=== PATIENT | female | born 1965 | race Caucasian/White ===

== ENCOUNTER 2016-07-13 16:27 | Emergency (ER) | payer MEDICAID ==
[2016-07-13 16:50] VITALS: BP 134/61
[2016-07-13] MEDS ORDERED: Sodium Chloride 0.9% 1,000 ML IV ONE ×2 (17:08→18:18)
[2016-07-13] MEDS ORDERED: Sodium Chloride 0.9% 10 ML Syringe FLUSH PRN (17:08)
[2016-07-13] MEDS ORDERED: Ondansetron 4 MG/2 ML SDV IVPUSH ONE (17:08)
--- NOTE | 2016-07-13 17:09 | EDM.PDOC ---
ED HPI GENERAL MEDICAL PROBLEM - General Chief Complaint: General Stated Complaint: LETHARGIC, SHAKEY, HEADACHE Time Seen by Provider: 07/13/16 17:00 Source of Information: Reports: Patient History Limitations: Reports: No Limitations - History of Present Illness INITIAL COMMENTS - FREE TEXT/NARRATIVE: 51-year-old female is brought over from the clinic for evaluation and treatment of a headache and lethargy. Patient has slurred speech and is very lethargic. She is a poor historian at this time. Apparently she has slept approximately 18- 20 hours last night. She contacted her primary care provider around noon today. She made an appointment with him but misunderstood and did not show up until about 4:30. It was then determined at the clinic that she should be brought over to the ER for higher level of care. Current symptoms included headache, lethargy, weakness, neck pain, slurred speech, blurry vision and difficulty remembering things. She denies any double vision, vomiting, chest pain, shortness of breath or abdominal pain. She does not remember her medications. We had to contact pharmacy for a list of these. has presented to the ER. States She went to bed as normal on Monday. states that she woke Mondayand helped him get their daughter ready for school. No concerns at that time. He states that he ran some errands and around noon on Monday he returned home; she was laying in bed. He felt this was odd but allowed her to sleep. He felt that she was diaphoretic, pale, cold and clammy at that time. He took her temp and it was 98.5 and her blood pressure was in the 100s/60s. He states that he allowed her to sleep and checked on her again around 4 or 5pm. She was still in bed. He states that she slept through Monday. He checked on her every hour. States she skipped her meds on Monday a.m. and p.m. He states that over Monday night he notes periods of apnea. He states on Monday he felt her pupils are fixed and dilated. They said they did not react to light. Patient last remembers her waking her up shouting at her. Patient reports she has had several falls over the last few days. Reports striking her neck and occipital region at least once. joints, knees Pain Score (Numeric/FACES): 5 - Related Data Allergies Allergy/AdvReac Type Severity Reaction Status Date / Time gabapentin Allergy Other Verified 07/13/16 17:21 lorazepam [From Ativan] Allergy Hallucinati Verified 07/13/16 17:21 ons Penicillins Allergy Other Verified 07/13/16 17:21 pregabalin [From Lyrica] Allergy Other Verified 07/13/16 17:21 Home Meds: Home Meds ALPRAZolam [Xanax] 0.5 mg PO TID PRN 07/13/16 [History] Amitriptyline [Elavil] 200 mg PO BEDTIME 07/13/16 [History] Baclofen [Lioresal] 1 tab PO TID PRN 07/13/16 [History] ClonazePAM [KlonoPIN] 1 mg PO TID PRN 07/13/16 [History] Codeine/Promethazine HCl [Promethazine-Codeine Syrup] 1 dose PO QID PRN [History] Cyanocobalamin (Vitamin B-12) [Cyanocobalamin Injection] 1,000 mcg IJ ASDIRECTED 07/13/16 [History] DULoxetine [Cymbalta] 60 mg PO DAILY 07/13/16 [History] Lisinopril/Hydrochlorothiazide [Lisinopril-Hctz 20-25 mg Tab] 1 each PO DAILY [History] Nitrofurantoin Monohyd/M-Cryst [Macrobid 100 mg Capsule] 100 mg PO BID #10 capsule 07/13/16 [Rx] Zolpidem Tartrate [Ambien] 5 mg PO BEDTIME PRN 07/13/16 [History] cloNIDine [Catapres] 0.1 mg PO DAILY 07/13/16 [History] fentaNYL [Fentanyl] 25 mcg TD Q72H 07/13/16 [History] metFORMIN HCl [Metformin HCl] 650 mg PO BID 07/13/16 [History] oxyCODONE 1 tab PO Q6H PRN 07/13/16 [History] Past Medical History HEENT History: Reports: Impaired Vision Cardiovascular History: Reports: Hypertension Respiratory History: Reports: Other (See Below) Other Respiratory History: recently treated for pneumonia, RAD Gastrointestinal History: Reports: Other (See Below) Other Gastrointestinal History: hx nausea, takes meclizine at home Genitourinary History: Reports: Other (See Below) Other Genitourinary History: uranry retention 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 (See Below) Other OB/BYN History: right ovary removed Musculoskeletal History: Reports: Arthritis, Fibromyalgia, Other (See Below) Other Musculoskeletal History: chronic knee pain Neurological History: Reports: Headaches, Chronic Psychiatric History: Reports: Anxiety, Depression, Mood Swings, Panic Attack, PTSD Other Psychiatric History: patient states "odd behaviors" before travelling and "big events" Endocrine/Metabolic History: Reports: Hypothyroidism, Obesity/BMI 30+ - Past Surgical History GI Surgical History: Reports: Bariatric Procedure Other GI Surgeries/Procedures: gastric bypass 7 years ago Other Musculoskeletal Surgeries/Procedures:: patient currently a patient at the pain clinic for chronic pain Social & Family History - Family History Family Medical History: Noncontributory - Tobacco Use Smoking Status *Q: Never Smoker - Caffeine Use Caffeine Use: Reports: None - Recreational Drug Use Recreational Drug Use: No Other Recreational Drug Type: patient has multiple prescription anxiety and narcotic pain medication ED ROS GENERAL - Review of Systems Review Of Systems: See Below Constitutional: Reports: Weakness, Fatigue. Denies: Fever, Chills HEENT: Reports: Vision Change (blurry vision; no double vision), Other (dry mouth) Respiratory: Denies: Shortness of Breath Cardiovascular: Denies: Chest Pain GI/Abdominal: Reports: Nausea. Denies: Abdominal Pain, Diarrhea, Vomiting Musculoskeletal: Reports: Neck Pain Neurological: Reports: Headache, Numbness, Tingling, Difficulty Walking, Change in Speech Psychiatric: Reports: Confusion ED EXAM, GENERAL - Physical Exam Exam: See Below Exam Limited By: No Limitations General Appearance: Lethargic, Obese Eye Exam: Bilateral Eye: EOMI, PERRL Ears: Normal External Exam, Normal Canal, Hearing Grossly Normal, Normal TMs Nose: Normal Inspection Throat/Mouth: Normal Inspection, Normal Lips, Normal Voice, No Airway Compromise Head: Atraumatic, Normocephalic Neck: Normal Inspection, Supple, Non-Tender Respiratory/Chest: No Respiratory Distress, Lungs Clear, Normal Breath Sounds Cardiovascular: Normal Peripheral Pulses, Regular Rate, Rhythm, No Murmur GI/Abdominal: Soft, Non-Tender Neurological: CN II-XII Intact, Confused, Slow to Respond, Other (normal finger to nose testing, no pronator drift, heel to rowland normal right, deviation on the left; belting cutter, dorsiflexion and plantarflexion 5/5 bilaterally; slurred speech; symmetrical smile; able to raise eyebrows) Psychiatric: Flat Affect Skin Exam: Warm, Dry, Normal Color EKG INTERPRETATION EKG Date: 07/13/16 Time: 17:10 Rhythm: NSR Rate (beats/min): 91 Reubens: normal P-wave: present QRS: normal ST-T: normal QT: normal Comparison: NA - no prior EKG EKG Interpretation Comments: NSR at 91 bpm. Q waves in V2 and V3. Mild St elevation in V2. Reviewed by myself and Dr. Lewis. Course - Vital Signs Last Recorded V/S: Last Vital Signs Temp 36.7 C 07/13/16 16:30 Pulse 96 07/13/16 16:30 Resp 18 07/13/16 16:30 BP 134/61 07/13/16 16:30 Pulse Ox 99 07/13/16 16:30 - Orders/Labs/Meds Orders: Active Orders 24 hr Category Date Time Status Cardiac Monitoring [RC] . DIRECTED Care 07/13/16 17:06 Active EKG Documentation Completion [RC] STAT Care 07/13/16 17:02 Active Peripheral IV Care [RC] . DIRECTED Care 07/13/16 17:08 Active Chest 1V Frontal [CR] Stat Exams 07/13/16 17:02 Taken CULTURE URINE [RM] Stat Lab 07/13/16 19:20 Received Peripheral IV Insertion Adult [OM.PC] Routine Oth 07/13/16 17:08 Ordered Labs: Laboratory Tests 07/13/16 07/13/16 07/13/16 Range/Units 16:44 17:02 17:15 WBC 10.00 (3.98-10.04) K/mm3 RBC 4.35 (3.98-5.22) M/mm3 Hgb 11.9 (11.2-15.7) gm/L Hct 36.8 (34.1-44.9) % MCV 84.6 (79.4-94.8) fl MCH 27.4 (25.6-32.2) pg MCHC 32.3 (32.2-35.5) g/dl RDW Std Deviation 45.3 (36.4-46.3) fL Plt Count 335 (182-369) K/mm3 MPV 10.1 (9.4-12.3) fl Neutrophils % (Manual) 77 H (40-60) % Band Neutrophils % 0 (0-10) % Lymphocytes % (Manual) 18 L (20-40) % Atypical Lymphs % 0 % Monocytes % (Manual) 4 (2-10) % Eosinophils % (Manual) 1 (0.7-5.8) % Basophils % (Manual) 0 L (0.1-1.2) Platelet Estimate Adequate RBC Morph Comment Normal Sodium 128 L (136-145) mEq/L Potassium 3.7 (3.5-5.1) mEq/L Chloride 91 L (98-107) mEq/L Carbon Dioxide 30 (21-32) mEq/L Anion Gap 10.7 (5-15) BUN 10 (7-18) mg/dL Creatinine 1.2 H (0.55-1.02) mg/dL Est Cr Clr Drug Dosing 51.03 mL/min Estimated GFR (MDRD) 48 (>60) mL/min BUN/Creatinine Ratio 8.3 L (14-18) Glucose 98 (74-106) mg/dL POC Glucose 110 H (70-105) mg/dL Calcium 8.8 (8.5-10.1) mg/dL Magnesium 1.8 (1.8-2.4) mg/dl Total Bilirubin 0.5 (0.2-1.0) mg/dL AST 20 (15-37) U/L ALT 17 (14-59) U/L Alkaline Phosphatase 95 (46-116) U/L C-Reactive Protein 1.5 H* (<1.0) mg/dL Total Protein 6.6 (6.4-8.2) g/dl Albumin 3.2 L (3.4-5.0) g/dl Globulin 3.4 gm/dL Albumin/Globulin Ratio 0.9 L (1-2) TSH 3rd Generation 1.026 (0.358-3.74) uIU/mL Urine Color (Yellow) Urine Appearance (Clear) Urine pH (5.0-8.0) Ur Specific Raysal (1.005-1.030) Urine Protein (Negative) Urine Glucose (UA) (Negative) Urine Ketones (Negative) Urine Occult Blood (Negative) Urine Nitrite (Negative) Urine Bilirubin (Negative) Urine Urobilinogen (0.2-1.0) Ur Leukocyte Esterase (Negative) Urine RBC (0-5) /hpf Urine WBC (0-5) /hpf Ur Epithelial Cells (0-5) /hpf Urine Bacteria (FEW) /hpf Urine Mucus (FEW) /hpf Urine Opiates Screen (NEGATIVE) Ur Buprenorphine Scrn (NEGATIVE) Ur Oxycodone Screen (NEGATIVE) Urine Methadone Screen (NEGATIVE) Ur Propoxyphene Screen (NEGATIVE) Ur Barbiturates Screen (NEGATIVE) Ur Tricyclics Screen (NEGATIVE) Ur Phencyclidine Scrn (NEGATIVE) Ur Amphetamine Screen (NEGATIVE) U Methamphetamines Scrn (NEGATIVE) U Benzodiazepines Scrn (NEGATIVE) U Cocaine Metab Screen (NEGATIVE) U Marijuana (THC) Screen (NEGATIVE) Ethyl Alcohol 0.00 (0.00) gm% 07/13/16 07/13/16 Range/Units 19:20 19:20 WBC (3.98-10.04) K/mm3 RBC (3.98-5.22) M/mm3 Hgb (11.2-15.7) gm/L Hct (34.1-44.9) % MCV (79.4-94.8) fl MCH (25.6-32.2) pg MCHC (32.2-35.5) g/dl RDW Std Deviation (36.4-46.3) fL Plt Count (182-369) K/mm3 MPV (9.4-12.3) fl Neutrophils % (Manual) (40-60) % Band Neutrophils % (0-10) % Lymphocytes % (Manual) (20-40) % Atypical Lymphs % % Monocytes % (Manual) (2-10) % Eosinophils % (Manual) (0.7-5.8) % Basophils % (Manual) (0.1-1.2) Platelet Estimate RBC Morph Comment Sodium (136-145) mEq/L Potassium (3.5-5.1) mEq/L Chloride (98-107) mEq/L Carbon Dioxide (21-32) mEq/L Anion Gap (5-15) BUN (7-18) mg/dL Creatinine (0.55-1.02) mg/dL Est Cr Clr Drug Dosing mL/min Estimated GFR (MDRD) (>60) mL/min BUN/Creatinine Ratio (14-18) Glucose (74-106) mg/dL POC Glucose (70-105) mg/dL Calcium (8.5-10.1) mg/dL Magnesium (1.8-2.4) mg/dl Total Bilirubin (0.2-1.0) mg/dL AST (15-37) U/L ALT (14-59) U/L Alkaline Phosphatase (46-116) U/L C-Reactive Protein (<1.0) mg/dL Total Protein (6.4-8.2) g/dl Albumin (3.4-5.0) g/dl Globulin gm/dL Albumin/Globulin Ratio (1-2) TSH 3rd Generation (0.358-3.74) uIU/mL Urine Color Yellow (Yellow) Urine Appearance Clear (Clear) Urine pH 6.5 (5.0-8.0) Ur Specific Raysal 1.015 (1.005-1.030) Urine Protein Negative (Negative) Urine Glucose (UA) Negative (Negative) Urine Ketones Negative (Negative) Urine Occult Blood Trace-lysed H (Negative) Urine Nitrite Negative (Negative) Urine Bilirubin Negative (Negative) Urine Urobilinogen 0.2 (0.2-1.0) Ur Leukocyte Esterase 1+ H (Negative) Urine RBC 0-5 (0-5) /hpf Urine WBC 5-10 H (0-5) /hpf Ur Epithelial Cells 40-50 H (0-5) /hpf Urine Bacteria Moderate H (FEW) /hpf Urine Mucus Not seen (FEW) /hpf Urine Opiates Screen Presumptive positive H (NEGATIVE) Ur Buprenorphine Scrn Negative (NEGATIVE) Ur Oxycodone Screen Presumptive positive H (NEGATIVE) Urine Methadone Screen Negative (NEGATIVE) Ur Propoxyphene Screen Negative (NEGATIVE) Ur Barbiturates Screen Negative (NEGATIVE) Ur Tricyclics Screen Presumptive positive H (NEGATIVE) Ur Phencyclidine Scrn Negative (NEGATIVE) Ur Amphetamine Screen Negative (NEGATIVE) U Methamphetamines Scrn Negative (NEGATIVE) U Benzodiazepines Scrn Presumptive positive H (NEGATIVE) U Cocaine Metab Screen Negative (NEGATIVE) U Marijuana (THC) Screen Negative (NEGATIVE) Ethyl Alcohol (0.00) gm% Meds: Medications Discontinued Medications Generic Name Dose Route Start Last Admin Trade Name Freq PRN Reason Stop Dose Admin Sodium Chloride 1,000 mls @ 999 mls/hr 07/13/16 17:08 07/13/16 17:15 Normal Saline IV 07/13/16 18:08 999 mls/hr ONETIME ONE Administration Sodium Chloride 1,000 mls @ 999 mls/hr 07/13/16 18:18 07/13/16 18:42 Normal Saline IV 07/13/16 19:18 999 mls/hr ONETIME ONE Administration Ondansetron HCl 4 mg 07/13/16 17:08 07/13/16 17:15 Zofran IVPUSH 07/13/16 17:09 4 mg ONETIME ONE Administration Sodium Chloride 10 ml 07/13/16 17:08 07/13/16 17:15 Saline Flush FLUSH 10 ml ASDIRECTED PRN Administration Keep Vein Open - Radiology Interpretation Free Text/Narrative:: chest xray shows no acute intrathroacic process. CT of the head without contrast impression per Dr. Diaz: 1. Findings felt to be incidental as noted above. 2. No acute intracranial abnormality is appreciated. CT of the cervical spine without contrast impression per Dr. Diaz: 1. Mild degenerative change as noted above. 2. kyphosis either due to muscle spasm or positioning. 3. No acute bony abnormality is seen. CT Results Date: 07/13/16 - Re-Assessments/Exams Free Text/Narrative Re-Assessment/Exam: 07/13/16 20:04 Labs have returned. White blood cell count of 10.0, hemoglobin of 1.9 platelets 335. Sodium is 128, potassium 3.7 chloride is 91. Creatinine is 1.2. Glucose is 90. mag is 1.8. CRP is 1.5. TSH is 1.026 alcohol is 0 UA has trace lysed RBC, 1+ leuks and bacteria - urine sent for culture. drug screen is positive for opiates, benzoa, oxycodone and tricyclics I reviewed the lab, EKG and imaging results with the patient and her . I had nursing staff BladderScan the patient. She had greater than 1 L in her bladder. She attempted to urinate and urinated only about 250 cc. At that time I had nursing staff cath the patient and they got out about 1 L of urine. At this time the patient is greatly improved. She is much more alert and is speaking normally. I believe that her symptoms are likely from her multiple medications she is on. I will have her follow up with her primary care providers for taper off some of these medications. Will treat her with for UTI with Macrobid one tablet twice a day for 5 days. Discharge instructions as documented. Departure - Departure Time of Disposition: 20:05 Disposition: Home, Self-Care 01 Condition: fair Clinical Impression: UTI, Urinary tract infectious disease, Hyponatremia, Dehydration - Discharge Information Prescriptions: Nitrofurantoin Monohyd/M-Cryst [Macrobid 100 mg Capsule] 100 mg PO BID #10 capsule Instructions: Hyponatremia, [id number], Urinary Tract Infection, Adult, Easy- to-Read, Dehydration, Adult Referrals: Fernando Gastelum PA-C [Primary Care Provider] - Forms: ED Department Discharge Additional Instructions: Limit water. Recommend gatorade, powerade, etc for fluid replacement. may increase your sodium. macrobid 1 tab PO bid x 5 days for UTI. Follow-up with PCP or Monday. Follow-up with pain clinic to discuss tapering off some of your medications. Please return to the ER should your symptoms change or worsen. - My Orders Last 24 Hours: My Active Orders 07/13/16 17:02 EKG Documentation Completion [RC] STAT Chest 1V Frontal [CR] Stat 07/13/16 17:06 Cardiac Monitoring [RC] . DIRECTED 07/13/16 17:08 Peripheral IV Care [RC] . DIRECTED Peripheral IV Insertion Adult [OM.PC] Routine 07/13/16 19:20 CULTURE URINE [RM] Stat - Assessment/Plan Last 24 Hours: My Active Orders 07/13/16 17:02 EKG Documentation Completion [RC] STAT Chest 1V Frontal [CR] Stat 07/13/16 17:06 Cardiac Monitoring [RC] . DIRECTED 07/13/16 17:08 Peripheral IV Care [RC] . DIRECTED Peripheral IV Insertion Adult [OM.PC] Routine 07/13/16 19:20 CULTURE URINE [RM] Stat
--- NOTE | 2016-07-13 18:59 | CT ---
Head CT Technique: Multiple axial sections through the brain were obtained. Intravenous contrast was not utilized. Comparison: Previous head CT study of 04/11/13. Findings: Ventricles along with basal cisterns and sulci over the convexities are within normal limits for the patient's age. No abnormal parenchymal densities are seen. No evidence of intracranial hemorrhage. No midline shift or mass effect is seen. Bone window settings were reviewed which shows no discrete calvarial abnormality. Mild mucosal thickening is noted within the left side of the sphenoid sinus. Scalp lesion noted within the upper right parietal region which is noted on prior exam. Impression: 1. Findings felt to be incidental as noted above. 2. No acute intracranial abnormality is appreciated. Diagnostic code #2
--- NOTE | 2016-07-13 18:59 | CT ---
CT cervical spine Technique: Multiple axial sections through the cervical spine were obtained. Reconstructed sagittal and coronal images were reviewed. Comparison: Previous MRI cervical spine exam of 05/04/16. Findings: Mild disc space narrowing is noted at C4-C5, C5-C6 with moderate disc space narrowing noted at C6-C7. Mild anterior osteophytes are seen at these same levels. Slight kyphosis is present. Mild scoliosis is also noted. Mild degenerative spurring is noted within the uncovertebral joints at C5-C6 and C6-C7 on the left side. Mastoid sinuses and middle ear cavities are clear. Posterior skull base is intact. Vertebral bodies and posterior arches are intact with no fracture being seen. No bony central or bony neural foraminal stenosis is seen. No abnormal subluxation is seen. Impression: 1. Mild degenerative change as noted above. 2. Kyphosis either due to muscle spasm or positioning. 3. No acute bony abnormality is seen. Diagnostic code #2
--- NOTE | 2016-07-14 08:04 | CR ---
Chest: Portable view of the chest was obtained. Comparison: Previous chest x-rays not available. Heart size and mediastinum are within normal limits for portable technique. Lungs are clear. Bony structures are grossly intact. Impression: 1. Nothing acute is identified on portable chest x-ray. Diagnostic code #1
== END 2016-07-13 20:15 | disposition home or self-care (01) ==
LOC: JD.ED 16:27
DX: E86.0 Dehydration (principal); R53.83 Other fatigue; R51 Headache; E87.1 Hypo-osmolality and hyponatremia; N39.0 Urinary tract infection, site not specified; I10 Essential (primary) hypertension; E03.9 Hypothyroidism, unspecified; Z98.84 Bariatric surgery status; Z79.899 Other long term (current) drug therapy; Z88.0 Allergy status to penicillin; Z91.81 History of falling; M40.202 Unspecified kyphosis, cervical region; M41.9 Scoliosis, unspecified; M47.9 Spondylosis, unspecified
CPT/HCPCS: 36415; 51701; 51798; 70450; 71010; 72125; 80053; 80306; 81001; 82962; 83735; 84443; 85025; 86140; 87086; 87088; 87186; 93005; 96361; 96374; 99285; G0480; J2405; J7040; J7050; 99284

== ENCOUNTER 2016-08-20 13:09 | Emergency (ER) | payer MEDICAID ==
[2016-08-20 13:38] VITALS: BP 101/62
--- NOTE | 2016-08-20 15:39 | EDM.PDOC ---
ED HPI GENERAL MEDICAL PROBLEM - General Chief Complaint: Genitourinary Problem Stated Complaint: POSS. UTI, JOINT PAIN Time Seen by Provider: 08/20/16 14:00 Source of Information: Reports: Patient History Limitations: Reports: No Limitations - History of Present Illness INITIAL COMMENTS - FREE TEXT/NARRATIVE: Patient is a 51-year-old female with a history of chronic pain syndrome who presents ED complaining of left heel pain, multiple bruises over her extremities of unknown origin, increased sleepiness, and lacking motivation. Patient states she's on the fentanyl patch 25 g every 72 hours, and also oxycodone 4 times a day. States with taking these medications she is more drowsy , lacks motivation, and sleeps a lot more. States in the past she is taking more of the medications and prescription allowed. States as a recently she has been having her medications counted out so that she doesn't take more than she can. States she has been bumping into things more than usual and has had a couple falls. Pain to the right she's been left heel has been a chronic issue with relief on known precipitating factors. She's been utilizing a walker more lately because unsteady gait. Patient does present to the ED what appears to be overly medicated with narcotics due to increased drowsiness. Of note patient does have a history of hyponatremia and was hospitalized for a period of time with this abnormality. She has been drinking Gatorade and water and alternating fashion to help control this. She's had a poor appetite and notes that she has not been eating well. Largely in part with taking the narcotics. She is hoping to decrease her narcotic use. She has been under a lot more stress recently. 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 She denies any headache, chest pain, short of breath, numbness or tingling, abdominal pain, vision loss, pain with urination, or any additional complaints. She did vomit 1 today for unknown etiology. Generalized Pain Score (Numeric/FACES): 10 - Related Data Allergies Allergy/AdvReac Type Severity Reaction Status Date / Time gabapentin Allergy Other Verified 08/20/16 13:30 lorazepam [From Ativan] Allergy Hallucinati Verified 08/20/16 13:30 ons Penicillins Allergy Other Verified 08/20/16 13:30 pregabalin [From Lyrica] Allergy Other Verified 08/20/16 13:30 Home Meds: Home Meds ALPRAZolam [Xanax] 0.5 mg PO TID PRN 07/13/16 [History] Amitriptyline [Elavil] 200 mg PO BEDTIME 07/13/16 [History] Baclofen [Lioresal] 1 tab PO TID PRN 07/13/16 [History] ClonazePAM [KlonoPIN] 1 mg PO TID PRN 07/13/16 [History] Codeine/Promethazine HCl [Promethazine-Codeine Syrup] 1 dose PO QID PRN [History] Cyanocobalamin (Vitamin B-12) [Cyanocobalamin Injection] 1,000 mcg IJ ASDIRECTED 07/13/16 [History] DULoxetine [Cymbalta] 60 mg PO DAILY 07/13/16 [History] Lisinopril/Hydrochlorothiazide [Lisinopril-Hctz 20-25 mg Tab] 1 each PO DAILY [History] Zolpidem Tartrate [Ambien] 5 mg PO BEDTIME PRN 07/13/16 [History] cloNIDine [Catapres] 0.1 mg PO DAILY 07/13/16 [History] fentaNYL [Fentanyl] 25 mcg TD Q72H 07/13/16 [History] metFORMIN HCl [Metformin HCl] 650 mg PO BID 07/13/16 [History] oxyCODONE 1 tab PO Q6H PRN 07/13/16 [History] Past Medical History HEENT History: Reports: Impaired Vision Cardiovascular History: Reports: Hypertension Respiratory History: Reports: Other (See Below) Other Respiratory History: recently treated for pneumonia, RAD Gastrointestinal History: Reports: Other (See Below) Other Gastrointestinal History: hx nausea, takes meclizine at home Genitourinary History: Reports: Other (See Below) Other Genitourinary History: uranry retention [employer] 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 History: Reports: Other (See Below) Other OB/BYN History: right ovary removed Musculoskeletal History: Reports: Arthritis, Fibromyalgia, Other (See Below) Other Musculoskeletal History: chronic knee pain Neurological History: Reports: Headaches, Chronic Psychiatric History: Reports: Anxiety, Depression, Mood Swings, Panic Attack, PTSD Other Psychiatric History: patient states "odd behaviors" before travelling and "big events" Endocrine/Metabolic History: Reports: Hypothyroidism, Obesity/BMI 30+ - Past Surgical History GI Surgical History: Reports: Bariatric Procedure Other GI Surgeries/Procedures: gastric bypass 7 years ago Other Musculoskeletal Surgeries/Procedures:: patient currently a patient at the pain clinic for chronic pain Social & Family History - Family History Family Medical History: Noncontributory - Tobacco Use Smoking Status *Q: Never Smoker Second Hand Smoke Exposure: No - Caffeine Use Caffeine Use: Reports: Coffee - Recreational Drug Use Recreational Drug Use: No Other Recreational Drug Type: patient has multiple prescription anxiety and narcotic pain medication ED ROS GENERAL - Review of Systems Review Of Systems: ROS reveals no pertinent complaints other than HPI. ED EXAM, GENERAL - Physical Exam Exam: See Below Exam Limited By: Intoxication General Appearance: Alert, No Apparent Distress, Lethargic, Obese Eye Exam: Bilateral Eye: EOMI, PERRL Ears: Hearing Grossly Normal Nose: Normal Inspection Throat/Mouth: Normal Inspection, Normal Oropharynx, Normal Voice, No Airway Compromise Head: Atraumatic, Normocephalic Neck: Normal Inspection, Supple, Non-Tender, Full Range of Motion Respiratory/Chest: No Respiratory Distress, Lungs Clear, Normal Breath Sounds, No Accessory Muscle Use, Chest Non-Tender Cardiovascular: Normal Peripheral Pulses, Regular Rate, Rhythm Peripheral Pulses: 2+: Radial (L), Radial (R) GI/Abdominal: Normal Bowel Sounds, Soft, Non-Tender, No Organomegaly, No Distention Back Exam: Normal Inspection Extremities: Normal Range of Motion, No Pedal Edema, Normal Capillary Refill, Other (Pain to the left heel with palpation. No swelling, deformity, bruising, abrasions noted.) Neurological: Alert, Oriented, CN II-XII Intact, Other (Lethargic) Psychiatric: Normal Affect, Depressed Mood Skin Exam: Warm, Dry, Intact, No Rash, Ecchymosis (Multiple small old bruises to the upper and lower extremities.) Course - Vital Signs Last Recorded V/S: Last Vital Signs Temp 96.2 F 08/20/16 13:30 Pulse 63 08/20/16 13:30 Resp 15 08/20/16 13:30 BP 101/62 08/20/16 13:30 Pulse Ox 100 08/20/16 13:30 - Orders/Labs/Meds Orders: Active Orders 24 hr Category Date Time Status Peripheral IV Care [RC] . DIRECTED Care 08/20/16 15:48 Active Calcaneous Lt [CR] Stat Exams 08/20/16 14:17 Taken CULTURE URINE [RM] Stat Lab 08/20/16 14:50 Results Peripheral IV Insertion Adult [OM.PC] Stat Oth 08/20/16 15:48 Ordered Labs: Laboratory Tests 08/20/16 08/20/16 08/20/16 Range/Units 14:34 14:34 14:34 WBC 4.08 (3.98-10.04) K/mm3 RBC 3.87 L (3.98-5.22) M/mm3 Hgb 10.7 L (11.2-15.7) gm/L Hct 31.9 L (34.1-44.9) % MCV 82.4 (79.4-94.8) fl MCH 27.6 (25.6-32.2) pg MCHC 33.5 (32.2-35.5) g/dl RDW Std Deviation 43.1 (36.4-46.3) fL Plt Count 273 (182-369) K/mm3 MPV 10.4 (9.4-12.3) fl Neut % (Auto) 54.0 (34.0-71.1) % Lymph % (Auto) 34.3 (19.3-51.7) % [place] % (Auto) 10.0 (4.7-12.5) % Eos % (Auto) 1.2 (0.7-5.8) Baso % (Auto) 0.5 (0.1-1.2) % Neut # (Auto) 2.20 (1.56-6.13) K/mm3 Lymph # (Auto) 1.40 (1.18-3.74) K/mm3 [place] # (Auto) 0.41 H (0.24-0.36) K/mm3 Eos # (Auto) 0.05 (0.04-0.36) K/mm3 Baso # (Auto) 0.02 (0.01-0.08) K/mm3 Sodium 127 L (136-145) mEq/L Potassium 4.3 (3.5-5.1) mEq/L Chloride 92 L (98-107) mEq/L Carbon Dioxide 27 (21-32) mEq/L Anion Gap 12.3 (5-15) BUN 10 (7-18) mg/dL Creatinine 1.2 H (0.55-1.02) mg/dL Est Cr Clr Drug Dosing 51.03 mL/min Estimated GFR (MDRD) 48 (>60) mL/min BUN/Creatinine Ratio 8.3 L (14-18) Glucose 91 (74-106) mg/dL Serum Osmolality 259 L (280-300) mosm/kg Calcium 8.2 L (8.5-10.1) mg/dL Total Bilirubin 0.4 (0.2-1.0) mg/dL AST 23 (15-37) U/L ALT 28 (14-59) U/L Alkaline Phosphatase 67 (46-116) U/L C-Reactive Protein 0.7 (<1.0) mg/dL Total Protein 6.1 L (6.4-8.2) g/dl Albumin 3.3 L (3.4-5.0) g/dl Globulin 2.8 gm/dL Albumin/Globulin Ratio 1.2 (1-2) TSH 3rd Generation 0.715 (0.358-3.74) uIU/mL Urine Color (Yellow) Urine Appearance (Clear) Urine pH (5.0-8.0) Ur Specific [place] (1.005-1.030) Urine Protein (Negative) Urine Glucose (UA) (Negative) Urine Ketones (Negative) Urine Occult Blood (Negative) Urine Nitrite (Negative) Urine Bilirubin (Negative) Urine Urobilinogen (0.2-1.0) Ur Leukocyte Esterase (Negative) Urine RBC (0-5) /hpf Urine WBC (0-5) /hpf Ur Epithelial Cells (0-5) /hpf Urine Bacteria (FEW) /hpf Urine Mucus (FEW) /hpf Urine Opiates Screen (NEGATIVE) Ur Buprenorphine Scrn (NEGATIVE) Ur Oxycodone Screen (NEGATIVE) Urine Methadone Screen (NEGATIVE) Ur Propoxyphene Screen (NEGATIVE) Ur Barbiturates Screen (NEGATIVE) Ur Tricyclics Screen (NEGATIVE) Ur Phencyclidine Scrn (NEGATIVE) Ur Amphetamine Screen (NEGATIVE) U Methamphetamines Scrn (NEGATIVE) U Benzodiazepines Scrn (NEGATIVE) U Cocaine Metab Screen (NEGATIVE) U Marijuana (THC) Screen (NEGATIVE) 08/20/16 08/20/16 Range/Units 14:50 14:50 WBC (3.98-10.04) K/mm3 RBC (3.98-5.22) M/mm3 Hgb (11.2-15.7) gm/L Hct (34.1-44.9) % MCV (79.4-94.8) fl MCH (25.6-32.2) pg MCHC (32.2-35.5) g/dl RDW Std Deviation (36.4-46.3) fL Plt Count (182-369) K/mm3 MPV (9.4-12.3) fl Neut % (Auto) (34.0-71.1) % Lymph % (Auto) (19.3-51.7) % [place] % (Auto) (4.7-12.5) % Eos % (Auto) (0.7-5.8) Baso % (Auto) (0.1-1.2) % Neut # (Auto) (1.56-6.13) K/mm3 Lymph # (Auto) (1.18-3.74) K/mm3 [place] # (Auto) (0.24-0.36) K/mm3 Eos # (Auto) (0.04-0.36) K/mm3 Baso # (Auto) (0.01-0.08) K/mm3 Sodium (136-145) mEq/L Potassium (3.5-5.1) mEq/L Chloride (98-107) mEq/L Carbon Dioxide (21-32) mEq/L Anion Gap (5-15) BUN (7-18) mg/dL Creatinine (0.55-1.02) mg/dL Est Cr Clr Drug Dosing mL/min Estimated GFR (MDRD) (>60) mL/min BUN/Creatinine Ratio (14-18) Glucose (74-106) mg/dL Serum Osmolality (280-300) mosm/kg Calcium (8.5-10.1) mg/dL Total Bilirubin (0.2-1.0) mg/dL AST (15-37) U/L ALT (14-59) U/L Alkaline Phosphatase (46-116) U/L C-Reactive Protein (<1.0) mg/dL Total Protein (6.4-8.2) g/dl Albumin (3.4-5.0) g/dl Globulin gm/dL Albumin/Globulin Ratio (1-2) TSH 3rd Generation (0.358-3.74) uIU/mL Urine Color Yellow (Yellow) Urine Appearance Clear (Clear) Urine pH 6.0 (5.0-8.0) Ur Specific [place] 1.015 (1.005-1.030) Urine Protein Negative (Negative) Urine Glucose (UA) Negative (Negative) Urine Ketones Negative (Negative) Urine Occult Blood Negative (Negative) Urine Nitrite Negative (Negative) Urine Bilirubin Negative (Negative) Urine Urobilinogen 0.2 (0.2-1.0) Ur Leukocyte Esterase Negative (Negative) Urine RBC 0-5 (0-5) /hpf Urine WBC 10-20 H (0-5) /hpf Ur Epithelial Cells 20-30 H (0-5) /hpf Urine Bacteria Rare (FEW) /hpf Urine Mucus Not seen (FEW) /hpf Urine Opiates Screen Presumptive positive H (NEGATIVE) Ur Buprenorphine Scrn Negative (NEGATIVE) Ur Oxycodone Screen Presumptive positive H (NEGATIVE) Urine Methadone Screen Negative (NEGATIVE) Ur Propoxyphene Screen Negative (NEGATIVE) Ur Barbiturates Screen Negative (NEGATIVE) Ur Tricyclics Screen Presumptive positive H (NEGATIVE) Ur Phencyclidine Scrn Negative (NEGATIVE) Ur Amphetamine Screen Negative (NEGATIVE) U Methamphetamines Scrn Negative (NEGATIVE) U Benzodiazepines Scrn Presumptive positive H (NEGATIVE) U Cocaine Metab Screen Negative (NEGATIVE) U Marijuana (THC) Screen Negative (NEGATIVE) Meds: Medications Discontinued Medications Generic Name Dose Route Start Last Admin Trade Name Freq PRN Reason Stop Dose Admin Sodium Chloride 1,000 mls @ 999 mls/hr 08/20/16 15:48 08/20/16 15:57 Normal Saline IV 08/20/16 16:48 999 mls/hr ONETIME ONE Administration Sodium Chloride 10 ml 08/20/16 15:48 08/20/16 15:57 Saline Flush FLUSH 10 ml ASDIRECTED PRN Administration Keep Vein Open - Re-Assessments/Exams Free Text/Narrative Re-Assessment/Exam: Ordered CBC, chem 14, CRP, UA, urine drug tox, and x-ray of the calcaneus. Labs reviewed: White blood cell count 4.08, hemoglobin is 10.7, and platelets were 273. Sodium 127 which is low in comparison to previous blood work obtained 07/20/2016 of 136. Potassium 4.3, creatinine is 1.2 which is increased from 2016 of 0.9. Glucose 91. UA did reveal white blood cells 10-20 and epithelial cells 20-30 consistent for contaminated source. Culture obtained. Urine drug tox was positive for opiates, oxycodone, tricyclics, and benzos. X-ray of the calcaneus did not reveal any acute abnormalities. Bone spurs are present. 08/20/16 15:49 discussed lab results with patient along with x-ray. Etiology of patient's complaint could be related to the hyponatremia of 127, hypothyroidism , depression/anxiety, and/or combination of excessive narcotic pain medication use. Patient currently has on fentanyl patches 25 g. She has taken oxycodone today as well. This is all for fibromyalgia. Patient is unclear how low her sodium gets before having symptoms. She has been utilizing Gatorade and water in alternating fashion to control this. Current symptoms have been chronic and states worsen with taking narcotics. Subsequently I believe this is most likely related to excessively medicated with narcotics. Will obtain a serum osmo and also a TSH. Ordered a peripheral IV with NS 1 L of 999 mls per hour along with some Gatorade. Reassessment, patient is feeling better while being the ED. We have not provided any therapies at this time. 08/20/16 16:58 Reassessment, patient is filling much better. IV fluids are almost completed. She is ready to go home. Will discharge patient home with instructions as documented. Departure - Departure Time of Disposition: 16:59 Disposition: Home, Self-Care 01 Clinical Impression: Hyponatremia with decreased serum osmolality, Calcaneal spur, left foot, Narcotic-induced mood disorder - Discharge Information Instructions: Heel Spur, Hyponatremia, [id number] Referrals: Fernando Gastelum PA-C [Primary Care Provider] - Forms: ED Department Discharge Additional Instructions: Please follow up with PCP this coming Monday for reevaluation. As discussed continue utilizing fentanyl patch as prescribed. I would minimize use of oxycodone. I do believe that this is contributing to increased sedation, lack of motivation, depression, and also poor appetite. Narcotics along with many of your home medications maybe compounding your symptoms. Return to the E.D. as needed for any new or worsening symptoms. - My Orders Last 24 Hours: My Active Orders 08/20/16 14:17 Calcaneous Lt [CR] Stat 08/20/16 14:50 CULTURE URINE [RM] Stat 08/20/16 15:48 Peripheral IV Care [RC] . DIRECTED Peripheral IV Insertion Adult [OM.PC] Stat - Assessment/Plan Last 24 Hours: My Active Orders 08/20/16 14:17 Calcaneous Lt [CR] Stat 08/20/16 14:50 CULTURE URINE [RM] Stat 08/20/16 15:48 Peripheral IV Care [RC] . DIRECTED Peripheral IV Insertion Adult [OM.PC] Stat
[2016-08-20] MEDS ORDERED: Sodium Chloride 0.9% 10 ML Syringe FLUSH PRN (15:48)
[2016-08-20] MEDS ORDERED: Sodium Chloride 0.9% 1,000 ML IV ONE (15:48)
--- NOTE | 2016-08-22 08:10 | CR ---
Left calcaneus: Two views of the left calcaneus were obtained. Comparison: No previous calcaneal or foot study. Plantar spur is seen. Minimal spur is noted at the attachment of the Achilles tendon to the calcaneus. Degenerative spurring is partially visualized within the midfoot. No acute fracture or other bony abnormality is identified. Impression: 1. Calcaneal spurs. 2. Mild degenerative change noted within the midfoot. Diagnostic code #2
== END 2016-08-20 17:24 | disposition home or self-care (01) ==
LOC: JD.ED 13:09
DX: M77.32 Calcaneal spur, left foot (principal); E87.1 Hypo-osmolality and hyponatremia; F11.14 Opioid abuse with opioid-induced mood disorder; I10 Essential (primary) hypertension; E03.9 Hypothyroidism, unspecified; E66.9 Obesity, unspecified; F41.9 Anxiety disorder, unspecified; F32.9 Major depressive disorder, single episode, unspecified; Z88.0 Allergy status to penicillin; Z88.8 Allergy status to other drugs, medicaments and biological substances; Z79.899 Other long term (current) drug therapy; Z79.84 Long term (current) use of oral hypoglycemic drugs; Z68.38 Body mass index [BMI] 38.0-38.9, adult
CPT/HCPCS: 36415; 73650; 80053; 80306; 81001; 83930; 84443; 85025; 86140; 87086; 96360; 99284; J7040; J7050; 99283

== ENCOUNTER 2016-09-14 14:27 | Emergency (ER) | payer MEDICAID ==
[2016-09-14] MEDS ORDERED: Ondansetron 4 MG/2 ML SDV IVPUSH ONE (15:24)
[2016-09-14] MEDS ORDERED: Sodium Chloride 0.9% 1,000 ML IV SCH (15:30)
--- NOTE | 2016-09-14 15:31 | EDM.PDOC ---
ED HPI GENERAL MEDICAL PROBLEM - General Chief Complaint: Headache Stated Complaint: MIGRANE, NAUSEA Time Seen by Provider: 09/14/16 15:15 Source of Information: Reports: Patient History Limitations: Reports: Other (Vomiting) - History of Present Illness INITIAL COMMENTS - FREE TEXT/NARRATIVE: Patient is a 51-year-old female who presents to the ED complaining of tension- like headache. Headache radiates from the frontal aspect of her head around the sides and into the back of her head with sensation head is being squeezed in a vice. This started yesterday. Described as a throbbing sensation with waxing and waning in intensity. Symptoms have worsened since onset. She's had multiple episodes of vomiting secondary to chronic nausea. She's had a poor appetite. Since the migraine started she's had intermittent double vision. She does report mild stiff neck. Has some numbness and tingling to her upper extremities that is intermittent. No weakness noted. She utilizes a walker chronically due to bone spur to her heel. She has a history of freqent UTI's and states she has a weird tingly sensation with urinating. It was documented in the triage notes patient was diagnosed with a kidney infection yesterday to which the patient denies. She is scheduled to see her PCP with concerns of having a UTI. She was evaluated by her psychologist yesterday with the discontinuation of Elavil and also decreasing dosages of multiple medications to improve her chronic sedative state. Past medical history hypertension, migraines, chronic nausea/vomiting, urinary retention, fibromyalgia, chronic knee pain, anxiety, depression, mood swings, panic attacks, PTSD, hypothyroidism, obesity, chronic pain syndrome. Current medications include Xanax, baclofen, clonazepam, vitamin B-12, duloxetine, lisinopril/HCTZ, Ambien, Catapres, fentanyl, metformin, oxycodone. Headache Pain Score (Numeric/FACES): 7 - Related Data Allergies Allergy/AdvReac Type Severity Reaction Status Date / Time amoxicillin Allergy Cannot Verified 09/14/16 14:45 Remember gabapentin Allergy Other Verified 09/14/16 14:45 lorazepam [From Ativan] Allergy Hallucinati Verified 09/14/16 14:45 ons Penicillins Allergy Other Verified 09/14/16 14:45 pregabalin [From Lyrica] Allergy Other Verified 09/14/16 14:45 Home Meds: Home Meds ALPRAZolam [Xanax] 0.5 mg PO TID PRN 07/13/16 [History] Amitriptyline [Elavil] 1 tab PO BEDTIME 07/13/16 [History] Baclofen [Lioresal] 1 tab PO BEDTIME PRN 07/13/16 [History] ClonazePAM [KlonoPIN] 1 mg PO TID PRN 07/13/16 [History] Cyanocobalamin (Vitamin B-12) [Cyanocobalamin Injection] 1,000 mcg INJECT ASDIRECTED 07/13/16 [History] DULoxetine [Cymbalta] 120 mg PO DAILY 07/13/16 [History] Lisinopril/Hydrochlorothiazide [Lisinopril-Hctz 20-25 mg Tab] 1 each PO DAILY [History] Zolpidem Tartrate [Ambien] 5 mg PO BEDTIME PRN 07/13/16 [History] cloNIDine [Catapres] 0.1 mg PO DAILY 07/13/16 [History] fentaNYL [Fentanyl] 25 mcg TD Q72H 07/13/16 [History] metFORMIN HCl [Metformin HCl] 650 mg PO BID 07/13/16 [History] oxyCODONE 1 tab PO Q6H PRN 07/13/16 [History] Past Medical History HEENT History: Reports: Impaired Vision Cardiovascular History: Reports: Hypertension Respiratory History: Reports: Other (See Below) Other Respiratory History: reactive airway disease Gastrointestinal History: Reports: Other (See Below) Other Gastrointestinal History: hx nausea, takes meclizine at home Genitourinary History: Reports: Other (See Below) Other Genitourinary History: uranry retention ADMITTANCE ATTENDANT History: Reports: Other (See Below) Other OB/BYN History: right ovary removed Musculoskeletal History: Reports: Arthritis, Fibromyalgia, Other (See Below) Other Musculoskeletal History: chronic knee pain Neurological History: Reports: Headaches, Chronic Psychiatric History: Reports: Anxiety, Depression, Mood Swings, Panic Attack, PTSD Other Psychiatric History: patient states "odd behaviors" before travelling and "big events" Endocrine/Metabolic History: Reports: Hypothyroidism, Obesity/BMI 30+ - Past Surgical History GI Surgical History: Reports: Bariatric Procedure Other GI Surgeries/Procedures: gastric bypass 7 years ago Other Musculoskeletal Surgeries/Procedures:: patient currently a patient at the pain clinic for chronic pain Social & Family History - Family History Family Medical History: Noncontributory - Tobacco Use Smoking Status *Q: Never Smoker Second Hand Smoke Exposure: No - Caffeine Use Caffeine Use: Reports: Coffee - Recreational Drug Use Recreational Drug Use: No Other Recreational Drug Type: patient has multiple prescription anxiety and narcotic pain medication ED ROS GENERAL - Review of Systems Review Of Systems: See Below Constitutional: Reports: Fever, Malaise, Decreased Appetite. Denies: Chills HEENT: Denies: Ear Pain, Sinus Problem, Throat Pain, Throat Swelling, Vertigo, Vision Change Respiratory: Denies: Shortness of Breath, Cough, Sputum Cardiovascular: Denies: Chest Pain, Dyspnea on Exertion, Palpitations, Syncope GI/Abdominal: Reports: Decreased Appetite, Nausea, Vomiting. Denies: Abdominal Pain, Black Stool, Bloody Stool, Constipation, Diarrhea, Difficulty Swallowing, Hematemesis, Hematochezia, Melena : Reports: No Symptoms Musculoskeletal: Reports: No Symptoms Skin: Reports: No Symptoms Neurological: Reports: Headache, Numbness (Fingers bilaterally chronic), Tingling, Difficulty Walking (Secondary to bone spur to heal). Denies: Confusion, Dizziness, Pre-Existing Deficit, Seizure, Syncope, Weakness Psychiatric: Reports: Depression - Physical Exam Exam: See Below Exam Limited By: Other (Vomiting) General Appearance: Alert, WD/WN, Moderate Distress Ears: Normal External Exam Throat/Mouth: Normal Inspection, Normal Oropharynx, Normal Voice, No Airway Compromise Head Exam: Atraumatic, Normocephalic Neck: Normal Inspection, Supple, Non-Tender, Full Range of Motion. No: Lymphadenopathy (L), Lymphadenopathy (R) Respiratory/Chest: No Respiratory Distress, Lungs Clear, Normal Breath Sounds, No Accessory Muscle Use, Chest Non-Tender Cardiovascular: Normal Peripheral Pulses, Regular Rate, Rhythm GI/Abdominal: Normal Bowel Sounds, Soft, No Organomegaly, No Distention, Tender (Suprapubic region) (Female) Exam: Deferred Neuro Exam (Abbreviated): Alert, Oriented, CN II-XII Intact, Normal Cognition, No Motor/Sensory Deficits, Other (Cerebellar function intact. No facial droop, nystagmus, tongue deviation, weakness discrepancy upper and lower extremities, sensory/motor deficits. ) Back Exam: Normal Inspection, Full Range of Motion. No: CVA Tenderness (L), CVA Tenderness (R) Psychiatric: Normal Affect, Normal Mood Skin Exam: Warm, Dry, Intact, Normal Color Course - Vital Signs Last Recorded V/S: Last Vital Signs Temp 101.1 F H 09/14/16 14:34 Pulse 90 09/14/16 14:34 Resp 18 09/14/16 14:34 BP Pulse Ox 93 L 09/14/16 14:34 - Orders/Labs/Meds Orders: Active Orders 24 hr Category Date Time Status EKG 12 Lead [EKG Documentation Completion] [RC] STAT Care 09/14/16 19:43 Active CULTURE BLOOD [BC] Stat Lab 09/14/16 17:17 Received CULTURE BLOOD [BC] Stat Lab 09/14/16 17:23 Received CULTURE URINE [RM] Stat Lab 09/14/16 16:25 Received Blood Culture x2 Reflex Set [OM.PC] Stat Oth 09/14/16 16:55 Ordered Labs: Laboratory Tests 09/14/16 09/14/16 09/14/16 Range/Units 15:54 15:54 16:25 WBC 8.23 (3.98-10.04) K/mm3 RBC 4.04 (3.98-5.22) M/mm3 Hgb 11.2 (11.2-15.7) gm/L Hct 34.6 (34.1-44.9) % MCV 85.6 (79.4-94.8) fl MCH 27.7 (25.6-32.2) pg MCHC 32.4 (32.2-35.5) g/dl RDW Std Deviation 45.2 (36.4-46.3) fL Plt Count 258 (182-369) K/mm3 MPV 10.1 (9.4-12.3) fl Neut % (Auto) 80.0 H (34.0-71.1) % Lymph % (Auto) 8.9 L (19.3-51.7) % Clark % (Auto) 10.9 (4.7-12.5) % Eos % (Auto) 0 L (0.7-5.8) Baso % (Auto) 0.1 (0.1-1.2) % Neut # (Auto) 6.58 H (1.56-6.13) K/mm3 Lymph # (Auto) 0.73 L (1.18-3.74) K/mm3 Clark # (Auto) 0.90 H (0.24-0.36) K/mm3 Eos # (Auto) 0.00 L (0.04-0.36) K/mm3 Baso # (Auto) 0.01 (0.01-0.08) K/mm3 Manual Slide Review Normal smear D-Dimer, Quantitative (0.19-0.59) mg/L Sodium 132 L (136-145) mEq/L Potassium 4.1 (3.5-5.1) mEq/L Chloride 95 L (98-107) mEq/L Carbon Dioxide 29 (21-32) mEq/L Anion Gap 12.1 (5-15) BUN 12 (7-18) mg/dL Creatinine 1.1 H (0.55-1.02) mg/dL Est Cr Clr Drug Dosing 55.67 mL/min Estimated GFR (MDRD) 53 (>60) mL/min BUN/Creatinine Ratio 10.9 L (14-18) Glucose 116 H (74-106) mg/dL Lactic Acid (0.4-2.0) mmol/L Calcium 8.4 L (8.5-10.1) mg/dL Total Bilirubin 0.4 (0.2-1.0) mg/dL AST 16 (15-37) U/L ALT 17 (14-59) U/L Alkaline Phosphatase 69 (46-116) U/L Troponin I (0.00-0.056) ng/mL C-Reactive Protein 11.4 H* (<1.0) mg/dL Total Protein 6.4 (6.4-8.2) g/dl Albumin 2.9 L (3.4-5.0) g/dl Globulin 3.5 gm/dL Albumin/Globulin Ratio 0.8 L (1-2) Lipase 68 L (73-393) U/L Urine Color Yellow (Yellow) Urine Appearance Cloudy H (Clear) Urine pH 6.0 (5.0-8.0) Ur Specific [place] 1.020 (1.005-1.030) Urine Protein Negative (Negative) Urine Glucose (UA) Negative (Negative) Urine Ketones Negative (Negative) Urine Occult Blood Trace-intact H (Negative) Urine Nitrite Positive H (Negative) Urine Bilirubin Negative (Negative) Urine Urobilinogen 0.2 (0.2-1.0) Ur Leukocyte Esterase 2+ H (Negative) Urine RBC 5-10 H (0-5) /hpf Urine WBC 50-75 H (0-5) /hpf Ur Epithelial Cells 0-5 (0-5) /hpf Urine Bacteria Many H (FEW) /hpf Urine Mucus Not seen (FEW) /hpf 09/14/16 09/14/16 09/14/16 Range/Units 17:17 18:55 18:55 WBC (3.98-10.04) K/mm3 RBC (3.98-5.22) M/mm3 Hgb (11.2-15.7) gm/L Hct (34.1-44.9) % MCV (79.4-94.8) fl MCH (25.6-32.2) pg MCHC (32.2-35.5) g/dl RDW Std Deviation (36.4-46.3) fL Plt Count (182-369) K/mm3 MPV (9.4-12.3) fl Neut % (Auto) (34.0-71.1) % Lymph % (Auto) (19.3-51.7) % Clark % (Auto) (4.7-12.5) % Eos % (Auto) (0.7-5.8) Baso % (Auto) (0.1-1.2) % Neut # (Auto) (1.56-6.13) K/mm3 Lymph # (Auto) (1.18-3.74) K/mm3 Clark # (Auto) (0.24-0.36) K/mm3 Eos # (Auto) (0.04-0.36) K/mm3 Baso # (Auto) (0.01-0.08) K/mm3 Manual Slide Review D-Dimer, Quantitative 0.69 H (0.19-0.59) mg/L Sodium (136-145) mEq/L Potassium (3.5-5.1) mEq/L Chloride (98-107) mEq/L Carbon Dioxide (21-32) mEq/L Anion Gap (5-15) BUN (7-18) mg/dL Creatinine (0.55-1.02) mg/dL Est Cr Clr Drug Dosing mL/min Estimated GFR (MDRD) (>60) mL/min BUN/Creatinine Ratio (14-18) Glucose (74-106) mg/dL Lactic Acid 0.7 (0.4-2.0) mmol/L Calcium (8.5-10.1) mg/dL Total Bilirubin (0.2-1.0) mg/dL AST (15-37) U/L ALT (14-59) U/L Alkaline Phosphatase (46-116) U/L Troponin I 0.575 H* (0.00-0.056) ng/mL C-Reactive Protein (<1.0) mg/dL Total Protein (6.4-8.2) g/dl Albumin (3.4-5.0) g/dl Globulin gm/dL Albumin/Globulin Ratio (1-2) Lipase (73-393) U/L Urine Color (Yellow) Urine Appearance (Clear) Urine pH (5.0-8.0) Ur Specific [place] (1.005-1.030) Urine Protein (Negative) Urine Glucose (UA) (Negative) Urine Ketones (Negative) Urine Occult Blood (Negative) Urine Nitrite (Negative) Urine Bilirubin (Negative) Urine Urobilinogen (0.2-1.0) Ur Leukocyte Esterase (Negative) Urine RBC (0-5) /hpf Urine WBC (0-5) /hpf Ur Epithelial Cells (0-5) /hpf Urine Bacteria (FEW) /hpf Urine Mucus (FEW) /hpf 09/14/16 Range/Units 20:00 WBC (3.98-10.04) K/mm3 RBC (3.98-5.22) M/mm3 Hgb (11.2-15.7) gm/L Hct (34.1-44.9) % MCV (79.4-94.8) fl MCH (25.6-32.2) pg MCHC (32.2-35.5) g/dl RDW Std Deviation (36.4-46.3) fL Plt Count (182-369) K/mm3 MPV (9.4-12.3) fl Neut % (Auto) (34.0-71.1) % Lymph % (Auto) (19.3-51.7) % Clark % (Auto) (4.7-12.5) % Eos % (Auto) (0.7-5.8) Baso % (Auto) (0.1-1.2) % Neut # (Auto) (1.56-6.13) K/mm3 Lymph # (Auto) (1.18-3.74) K/mm3 Clark # (Auto) (0.24-0.36) K/mm3 Eos # (Auto) (0.04-0.36) K/mm3 Baso # (Auto) (0.01-0.08) K/mm3 Manual Slide Review D-Dimer, Quantitative (0.19-0.59) mg/L Sodium (136-145) mEq/L Potassium (3.5-5.1) mEq/L Chloride (98-107) mEq/L Carbon Dioxide (21-32) mEq/L Anion Gap (5-15) BUN (7-18) mg/dL Creatinine (0.55-1.02) mg/dL Est Cr Clr Drug Dosing mL/min Estimated GFR (MDRD) (>60) mL/min BUN/Creatinine Ratio (14-18) Glucose (74-106) mg/dL Lactic Acid (0.4-2.0) mmol/L Calcium (8.5-10.1) mg/dL Total Bilirubin (0.2-1.0) mg/dL AST (15-37) U/L ALT (14-59) U/L Alkaline Phosphatase (46-116) U/L Troponin I 0.471 H* (0.00-0.056) ng/mL C-Reactive Protein (<1.0) mg/dL Total Protein (6.4-8.2) g/dl Albumin (3.4-5.0) g/dl Globulin gm/dL Albumin/Globulin Ratio (1-2) Lipase (73-393) U/L Urine Color (Yellow) Urine Appearance (Clear) Urine pH (5.0-8.0) Ur Specific [place] (1.005-1.030) Urine Protein (Negative) Urine Glucose (UA) (Negative) Urine Ketones (Negative) Urine Occult Blood (Negative) Urine Nitrite (Negative) Urine Bilirubin (Negative) Urine Urobilinogen (0.2-1.0) Ur Leukocyte Esterase (Negative) Urine RBC (0-5) /hpf Urine WBC (0-5) /hpf Ur Epithelial Cells (0-5) /hpf Urine Bacteria (FEW) /hpf Urine Mucus (FEW) /hpf Meds: Medications Discontinued Medications Generic Name Dose Route Start Last Admin Trade Name Kathy PRN Reason Stop Dose Admin Acetaminophen 975 mg 09/14/16 16:55 09/14/16 17:46 Tylenol PO 09/14/16 16:56 975 mg NOW ONE Administration Sodium Chloride 1,000 mls @ 150 mls/hr 09/14/16 15:30 09/14/16 15:54 Normal Saline IV 150 mls/hr ASDIRECTED NELLIE Administration Sodium Chloride 2,000 mls @ 999 mls/hr 09/14/16 16:56 09/14/16 19:35 Normal Saline IV 09/14/16 18:56 Not Given ONETIME ONE Levofloxacin/Dextrose 750 mg/ 150 mls @ 100 mls/hr 09/14/16 16:58 09/14/16 17 :44 Premix IV 09/14/16 18:27 100 mls/hr ONETIME ONE Administration Ondansetron HCl 4 mg 09/14/16 15:24 09/14/16 15:55 Zofran IVPUSH 09/14/16 15:25 4 mg ONETIME ONE Administration - Re-Assessments/Exams Free Text/Narrative Re-Assessment/Exam: Ordered CT of the head without contrast. IV established with normal saline, Zofran 4 mg IVP, Dilaudid 0.25 mg IVP. Initial labs and studies include CBC, chem 14, CRP, lipase, and UA. Patient is wearing a jacket and thus may be given erroneous reading for temperature. Will have her be placed in a gown to further assess her. CT of the head was negative for any acute processes. On examination patient was still wearing a sweater and warm blanket. Temperature recheck was 100.4. Will have the jacket and blanket taken also can further assess her temperature. She still has migraine headache with some intermittent discomfort to her lower abdomen worsened with urination. This does radiate into her lower back. Labs are pending. I have increased her fluid to 999 mls per hour. 2000mls of NS will be administered. Blood cultures x2 plus lactic acid ordered. Labs reviewed: White blood cell count 8.3, neutrophil percentage 80.0, neutrophil #6.58, hemoglobin 11.2, platelets 258, sodium 132, potassium 4.1, chloride 95, creatinine 1.1, glucose 116, CRP 11.4, lipase 68. UA revealed: appearance cloudy, Trace intact blood, nitrates positive, leukocyte esterase 2+, urine rbc's 5-10, urine wbc's 50-75, urine bacteria many. 09/14/16 16:59 UA grossly positive for urinary tract infection. Ordered Levaquin 750mg IV. 09/14/16 18:36 Per nursing staff patients O2 sats dipped into the low 80's. With instructions to take a deep breath this increased to the low 90's. Will obtain troponin and D-Dimer. Patient is known to live a nonactive lifestyle and is at risk of developing DVT/PE. 09/14/16 18:41 Patient is somewhat sedated while in the ED. We questioned what medication she has taken today prior to arrival. She is on clonazepam, Xanax, Ambien, and baclofen. In addition she utilizes a fentanyl patch. This was removed. Patient is sitting upright along the bed. We discussed this in great detail on past ED visits that she is on multiple medications that will cause increased sedation. She needs to get off some of these meds. 09/14/16 19:15 Patient's blood pressures have been running low. High 80' low 90' s systolic. Patient has a history of low blood pressures in the past. IV fluids are not in at this time. I have offered to admit the patient for further treatment with the above findings. She is adamant that she will not be admitted to the hospital. States she'll stay the night in [place] and be seen by her PCP tomorrow. 09/14/16 19:26 Troponin was elevated at 0.575 and d-dimer was elevated at 0.69. I shared these results with the patient. She's not having any chest pain or short of breath at this time. I informed her I would like to obtain a CTA of the chest to rule out PE. And consult a boom tender for transport to [place] to be evaluated and determine etiology of elevated troponin. Patient refused and states she wants to go home. I have informed her that she may from this and that I strongly advise her to have the CTA completetd and be transported to [place] to be evaluated by boom tender. Again the patient refuses. Daughter is present. Patient is alert and oriented 3. Patient is Compis menits and will sign out AMA. Vital signs are stable. She is afebrile. I will not discharge the patient on Levaquin due to risk of QT prolongation. She will be placed on Macrobid. I will attempt in obtaining a second troponin and a EKG prior to patient being discharged. 09/14/16 19:58 EKG sinus rhythm at a rate of 75, Q waves present V1 through V2 old anterior septal ID, decreased voltage precordial leads. 09/14/16 20:18 We were able to obtain a second troponin. I spoke with the patient and daughters again. I informed the mother that I would like to obtain a CTA of the chest to rule out PE. In addition I will be consulting a Mechanical Maintenance Engineer in [place] to discuss elevated troponin. I told her the patient will be transported by ambulance and will require admission to the hospital. Patient again refused to be transported by ambulance or be admitted to the hospital. She wants to go home. I told her she may from this. Both daughters heard this and are aware of this. They will take a few minutes to discuss this further. I told them that if they should decide to leave they can come back at anytime. 2035 I was informed patient signed out AMA. 09/14/16 20:41 Second troponin was 0.471. Trending downward. Unclear the cause of this abnormality. May be a troponin leak secondary to PE at this point is undetermined. Departure - Departure Time of Disposition: 20:36 Disposition: Against Medical Advice 07 Condition: Fair Clinical Impression: Elevated troponin, Elevated d-dimer UTI (urinary tract infection) Qualifiers: Urinary tract infection type: site unspecified Hematuria presence: with hematuria Qualified Code(s): N39.0 - Urinary tract infection, site not specified ; R31.9 - Hematuria, unspecified Fever Qualifiers: Fever type: unspecified Qualified Code(s): R50.9 - Fever, unspecified - Discharge Information Referrals: Fernando Gastelum PA-C [Primary Care Provider] - Forms: ED Department Discharge - My Orders Last 24 Hours: My Active Orders 09/14/16 16:25 CULTURE URINE [RM] Stat 09/14/16 16:55 Blood Culture x2 Reflex Set [OM.PC] Stat 07/19/17 17:17 CULTURE BLOOD [BC] Stat 09/14/16 17:23 CULTURE BLOOD [BC] Stat 09/14/16 19:43 EKG 12 Lead [EKG Documentation Completion] [RC] STAT - Assessment/Plan Last 24 Hours: My Active Orders 09/14/16 16:25 CULTURE URINE [RM] Stat 09/14/16 16:55 Blood Culture x2 Reflex Set [OM.PC] Stat 09/14/16 17:17 CULTURE BLOOD [BC] Stat 09/14/16 17:23 CULTURE BLOOD [BC] Stat 09/14/16 19:43 EKG 12 Lead [EKG Documentation Completion] [RC] STAT
--- NOTE | 2016-09-14 16:24 | CT ---
Head CT Technique: Multiple axial sections through the brain were obtained. Intravenous contrast was not utilized. Comparison: Previous head CT study of 07/13/16. Findings: Ventricles along with basal cisterns and sulci over convexities are within normal limits for the patient's age. Scalp lesion is again seen on the right side which is stable. No abnormal parenchymal densities are seen. No evidence of intracranial hemorrhage. No midline shift or mass effect is seen. Bone window settings were reviewed which shows the visualized sinuses do appear clear. No acute calvarial abnormality is seen. Impression: 1. Incidental findings. Nothing acute is seen on noncontrast head CT study. No significant change is seen from prior head CT exam. Diagnostic code #2
[2016-09-14] MEDS ORDERED: Acetaminophen 325 MG Tab PO ONE (16:55)
[2016-09-14] MEDS ORDERED: Levofloxacin/Dextrose 5%-Water 750 MG in Premix Bag 1 BAG IV ONE (16:58)
[2016-09-14] MEDS: Sodium Chloride 0.9% 2,000 ML IV ONE ×2 (17:50→19:35)
== END 2016-09-14 20:34 | disposition left against medical advice (07) ==
LOC: JD.ED 14:27
DX: N39.0 Urinary tract infection, site not specified (principal); R31.9 Hematuria, unspecified; R50.9 Fever, unspecified; R79.89 Other specified abnormal findings of blood chemistry; I10 Essential (primary) hypertension; M19.90 Unspecified osteoarthritis, unspecified site; F41.0 Panic disorder [episodic paroxysmal anxiety]; F32.9 Major depressive disorder, single episode, unspecified; E03.9 Hypothyroidism, unspecified; E66.9 Obesity, unspecified; Z68.37 Body mass index [BMI] 37.0-37.9, adult; Z98.84 Bariatric surgery status; Z88.0 Allergy status to penicillin; Z88.8 Allergy status to other drugs, medicaments and biological substances; Z88.1 Allergy status to other antibiotic agents; Z79.899 Other long term (current) drug therapy
CPT/HCPCS: 36415; 70450; 80053; 81001; 83605; 83690; 84484; 85025; 85379; 86140; 87040; 87077; 87086; 87088; 87186; 93005; 96361; 96365; 96366; 96375; 99285; A9270; J1956; J2405; J7040; 99284

== ENCOUNTER 2019-10-05 19:05 | Emergency (ER) | payer MEDICAID ==
[2019-10-05] MEDS ORDERED: Ondansetron 4 MG Tab.DIS PO ONE (19:29)
[2019-10-05] MEDS ORDERED: Acetaminophen/oxyCODONE 325-5 MG Tab PO ONE (19:30)
--- NOTE | 2019-10-05 19:32 | EDM.PDOC ---
ED HPI GENERAL MEDICAL PROBLEM - General Chief Complaint: Trauma Stated Complaint: possible broken nose fell hit head and nose Time Seen by Provider: 10/05/19 19:15 Source of Information: Reports: Patient History Limitations: Reports: No Limitations - History of Present Illness INITIAL COMMENTS - FREE TEXT/NARRATIVE: 54-year-old female presents to the ED after tripping and falling in her home tonight. She reports she tripped over something with laundry baskets in her arms and fell to the floor. She struck her face hard on the floor suffering blunt nasal trauma forehead trauma and of course cervical extension injury. She was dazed but did not lose consciousness. Complaining of pain primarily in her nose and mid face. She does not have her teeth in and does not complain of any dental injuries or injuries to the tongue. She is not spitting up any blood. She is actively bleeding from the left nares mildly. Injury occurred within the last hour. She states she called out for help but no one came. She was able to slowly get herself up from the floor and is able to walk with pain in her right hip and both knees. Onset: Today, Sudden Onset Date: 10/05/19 Onset Time: 18:00 Duration: Minutes: Location: Reports: Head (Clear her nose.), Face, Neck ( To the forehead diffuse cervical neck pain acute on chronic.), Lower Extremity, Left (Pain left knee), Lower Extremity, Right ( over the patella knee pain over the patella. Right hip pain as well.) Face/Facial Pain Score (Numeric/FACES): 9 - Related Data Allergies Allergy/AdvReac Type Severity Reaction Status Date / Time amoxicillin Allergy Severe Cannot Verified 10/05/19 19:24 Remember gabapentin Allergy Severe Other Verified 10/05/19 19:24 lorazepam [From Ativan] Allergy Severe Hallucinati Verified 10/05/19 19:24 ons Penicillins Allergy Severe Other Verified 10/05/19 19:24 pregabalin [From Lyrica] Allergy Severe Other Verified 10/05/19 19:24 Home Meds: Home Meds ALPRAZolam [Xanax] 1 mg PO TID PRN 07/13/16 [History] Cyanocobalamin (Vitamin B-12) [Cyanocobalamin Injection] 1,000 mcg INJECT ASDIRECTED 07/13/16 [History] DULoxetine [Cymbalta] 60 mg PO BID 07/13/16 [History] Acetaminophen [Pharbetol] 650 mg PO ASDIRECTED PRN 10/05/19 [History] Anastrozole. 1 tab PO ASDIRECTED 10/05/19 [History] Apremilast [Otezla] 30 mg PO BID 10/05/19 [History] Doxycycline [Vibra-Tabs] 100 mg PO Q12HR #20 tab 10/05/19 [Rx] Ergocalciferol (Vitamin D2) [Vitamin D2] 50,000 units PO WEEKLY 10/05/19 [History] Folic Acid 1 mg PO DAILY 10/05/19 [History] Hydrocodone/Acetaminophen [Hydrocodone-Acetamin 10-325 mg] 1 tab PO Q6H PRN 10/05/19 [History] Levothyroxine 150 mcg PO DAILY 10/05/19 [History] Methotrexate 12.5 mg PO WEEKLY 10/05/19 [History] Metoprolol Succinate [Toprol XL 50mg] 75 mg PO DAILY 10/05/19 [History] Multivitamin with Minerals [Multivitamins with Minerals] 1 tab PO DAILY 10/05/19 [History] Naproxen Sodium 220 mg PO Q12H PRN 10/05/19 [History] Ondansetron [Zofran] 4 mg BUCCAL Q6H PRN #8 tab 10/05/19 [Rx] Ondansetron [Zofran] 8 mg PO BID PRN 10/05/19 [History] Tamoxifen [Nolvadex] 20 mg PO DAILY 10/05/19 [History] Triamcinolone Acetonide [Triamcinolone Acetonide 0.1% Crm] 1 applic TOP BID 10/05/19 [History] busPIRone [Buspar] 15 mg PO BID 10/05/19 [History] oxyCODONE HCl/Acetaminophen [Percocet 5-325 mg Tablet] 1 - 2 each PO Q4H PRN #16 tablet 10/05/19 [Rx] rOPINIRole [Requip] 0.5 mg PO BEDTIME 10/05/19 [History] traZODone HCl [Trazodone HCl] 50 mg PO BEDTIME 10/05/19 [History] Past Medical History HEENT History: Reports: Impaired Vision Cardiovascular History: Reports: Hypertension Respiratory History: Reports: Other (See Below) Other Respiratory History: reactive airway disease Gastrointestinal History: Reports: Other (See Below) Other Gastrointestinal History: hx nausea, takes meclizine at home Genitourinary History: Reports: Other (See Below) Other Genitourinary History: uranry retention [employer]ESS[employer] History: Reports: Other (See Below) Other [employer]ESSOR [employer] History: right ovary removed Musculoskeletal History: Reports: Arthritis, Fibromyalgia, Other (See Below) Other Musculoskeletal History: chronic knee pain Neurological History: Reports: Headaches, Chronic Psychiatric History: Reports: Anxiety, Depression, Mood Swings, Panic Attack, PTSD Other Psychiatric History: patient states "odd behaviors" before travelling and "big events" Endocrine/Metabolic History: Reports: Hypothyroidism, Obesity/BMI 30+, Other (See Below) (B12 deficiency.) - Past Surgical History GI Surgical History: Reports: Bariatric Procedure Other GI Surgeries/Procedures: gastric bypass 7 years ago Other Musculoskeletal Surgeries/Procedures:: patient currently a patient at the pain clinic for chronic pain Social & Family History - Family History Family Medical History: Noncontributory - Caffeine Use Caffeine Use: Reports: Coffee - Living Situation & Occupation Living situation: Reports: Occupation: Unemployed ED ROS ENT - Review of Systems Review Of Systems: See Below Constitutional: Reports: Malaise, Weakness, Fatigue (Likely.). Denies: Fever, Chills HEENT: Reports: Glasses (She was not wearing glasses at the time of injury.), Other (Wears dentures but does not have them in at this time.) Respiratory: Reports: No Symptoms Cardiovascular: Reports: No Symptoms Endocrine: Reports: Fatigue GI/Abdominal: Reports: Constipation : Reports: Frequency, Incontinence (Urge and stress components.) Musculoskeletal: Reports: Back Pain (Back pain hip pain knee pain neck pain and shoulder pain at times. Has psoriatic arthritis.) Skin: Reports: Bruising (Is not on any blood thinners. She does use Naprosyn daily.) Neurological: Reports: No Symptoms Psychiatric: Reports: Anxiety, Depression Hematologic/Lymphatic: Reports: No Symptoms Immunologic: Reports: No Symptoms ED EXAM, ENT - Physical Exam Exam: See Below Exam Limited By: No Limitations General Appearance: Alert, WD/WN, Moderate Distress (Complaining of nausea and a lot of pain in her mid face.), Other (Temperature is 36.3. Heart rate 98 in sinus respiratory is 22 with mild hyperventilation symptoms. O2 sats 94% on room air. BP 143/65.) Eye Exam: Bilateral Eye: Normal Inspection, PERRL, Other (No periorbital injuries. No retuning of the eyes.) Ears: Normal TMs Nose: Nasal Swelling (Nose is swollen in particular across the bridge and mid), Nasal Tenderness ( aspect of the nares.), Active Bleeding (Minimal active bleeding coming from the left anterior nose. No nasal septal deformity or septal hematoma.), Other (Blood in the posterior oropharynx.). No: Septal Deformity Mouth/Throat: Normal Inspection, Other (A dentulous at this time.) Head: Other (Contusion mid forehead with minimal superficial abrasion. No significant hematoma.) Neck: Tender Midline (Use tenderness throughout the midline of the cervical spine as well as bilateral aspect of the cervical spine at all levels. She has decreased range of motion with loss of 10 degrees extension 10 degrees flexion and loss of 10 degrees lateral flexion bilaterally.) Respiratory/Chest: No Respiratory Distress ( States that she has chronic cervical neck pain due to degenerative arthritis and disc disease.), Lungs Clear, Normal Breath Sounds, No Accessory Muscle Use, Chest Non-Tender, Decreased Breath Sounds (Breath sounds are minimally decreased to the) Cardiovascular: Regular Rate, Rhythm, No Edema, No Gallop, No Murmur, No Rub GI/Abdominal: Normal Bowel Sounds, Soft, Non-Tender, No Organomegaly, No Mass, Pelvis Stable, Other (Moderately obese. This limits ability to palpate solid organs.) Back: Decreased Range of Motion (Chronic low back pain which she reports due to psoriatic arthritis and degenerative disc disease.) Extremities: Other (And is multiple superficial contusions with some early ecchymosis over both patellas and there are other bruises posterior right calf which she reports are 3 4 days old. Similarly there is bruises to the inner aspect of her left knee and proximal leg which are of 3 days duration. Unlikely she show signs of arthritic changes in both hips and both knees with limited range of motion. No pain on firm compression of her hands wrists elbows of both upper extremities. She has full range of motion of her shoulders although limited forward flexion due to pain. This is chronic for her.) Neurological: Alert, Oriented, CN II-XII Intact, Normal Cognition Psychiatric: Anxious, Tearful Skin: Warm, Dry, Intact, Normal Color, No Rash Course - Vital Signs Last Recorded V/S: Last Vital Signs Temp 36.3 C 10/05/19 19:16 Pulse 98 10/05/19 19:16 Resp 22 H 10/05/19 19:16 BP 143/65 H 10/05/19 19:16 Pulse Ox 94 L 10/05/19 19:16 - Orders/Labs/Meds Orders: Active Orders 24 hr Category Date Time Status Cervical Spine wo Cont [CT] Stat Exams 10/05/19 19:28 Taken Head wo Cont [CT] Stat Exams 10/05/19 19:29 Taken Maxillofacial w/o CM [Max Facial Sinus wo Cont] [CT] Exams 10/05/19 19:27 Taken Stat Pelvis 1V or 2V [CR] Stat Exams 10/05/19 19:32 Taken Meds: Medications Discontinued Medications Generic Name Dose Route Start Last Admin Trade Name Freq PRN Reason Stop Dose Admin Ondansetron HCl 4 mg 10/05/19 19:29 10/05/19 19:34 Zofran Odt PO 10/05/19 19:30 4 mg ONETIME ONE Administration Oxycodone/Acetaminophen 1 tab 10/05/19 19:30 10/05/19 19:34 Percocet 325-5 Mg PO 10/05/19 19:31 1 tab ONETIME ONE Administration - Radiology Interpretation Free Text/Narrative:: 54-year-old female presents to the ED after tripping and falling at home this evening. She landed on her knees and primarily her mid face. She suffered blunt force trauma to her nose with suspect fracture or at least significant contusion to the mid and bridge part of the nose. Minimal contusion to the forehead and a an extension injury to her cervical spine which is aggravated her chronic cervical neck pain. She was dazed but had no loss of consciousness. She is complaining of pain at 8 out of 10 in her mid face. Plan given Zofran 4 mg for nausea relief sublingually. Given 1 tablet of Percocet 5/325 mg by mouth at this time. Patient will have CT of her mid facial bones or maxillofacial bones her cervical spine and her head. I can find no significant injuries to her extremities back or abdomen. - Re-Assessments/Exams Free Text/Narrative Re-Assessment/Exam: 10/05/19 20:02 CT of the head reveals no intracranial bleeding or mass-effect and no skull fractures. There is mild degenerative change appreciated in both basal ganglia and small vessel ischemic change compared with her age. CT of the cervical spine reveals degenerative changes particular at the atlantoaxial joints and along the dens. No fractures were identified throughout the cervical spine. She has lost over normal lordotic curvature. CT of the maxillofacial bones reveals a minimal fracture of the left alae or nasal bone. It will not require surgical repair. The septum is relatively straight. There is minimal blood in the nasal tissues or the ethmoid sinuses. There is no injuries to the maxillofacial sinuses or frontal sinuses. Maxilla is intact. Mandible is intact as well. Departure - Departure Time of Disposition: 20:35 Disposition: Home, Self-Care 01 Condition: Fair Clinical Impression: Fall as cause of accidental injury at home as place of occurrence Qualifiers: Encounter type: initial encounter Qualified Code(s): W19.XXXA - Unspecified f all, initial encounter Fracture of nasal bone Qualifiers: Encounter type: initial encounter Fracture type: closed Qualified Code(s): S02.2XXA - Fracture of nasal bones, initial encounter for closed fracture Contusion of knee, left Qualifiers: Encounter type: initial encounter Qualified Code(s): S80.02XA - Contusion of left knee, initial encounter Contusion of knee, right Qualifiers: Encounter type: initial encounter Qualified Code(s): S80.01XA - Contusion of right knee, initial encounter - Discharge Information *PRESCRIPTION DRUG MONITORING PROGRAM REVIEWED*: Not Applicable *COPY OF PRESCRIPTION DRUG MONITORING REPORT IN PATIENT ISMAEL: Not Applicable Prescriptions: oxyCODONE HCl/Acetaminophen [Percocet 5-325 mg Tablet] 1 - 2 each PO Q4H PRN #16 tablet PRN Reason: pain relief. Doxycycline [Vibra-Tabs] 100 mg PO Q12HR #20 tab Ondansetron [Zofran] 4 mg BUCCAL Q6H PRN #8 tab PRN Reason: nausea or vomiting Instructions: Nasal Fracture, [id number], Contusion, [id number] Referrals: Fernanda Castro NP [Primary Care Provider] - Forms: ED Department Discharge Additional Instructions: Evaluation in the emergency room tonight in regards to a fall in your home tonight. You suffered blunt mid facial trauma particular to your nose and forehead with a fracture through the left alar nasal bone in good position. The nasal septum is in good position. There is minimal bleeding from the left side of the outer nose that will stop on its own. CT of your neck reveals degenerative changes throughout particularly at the upper level at BRCA1 and cervical to vertebra. No fractures were identified or malposition. CT of the head reveals no intracranial bleeding or mass-effect and no skull fractures. CT of the maxillofacial bones does not reveal any injuries to the mandible or jaw bone and no injuries to the maxillofacial sinuses both frontal and mid facial sinuses. The nose bones will hurt to touch for the next month or so. No rosalio tment is required. Suggest treatment to be ice pack to the area if you can tolerate it for 1/2-hour out of every 4 hours today and tomorrow. You will need to take antibiotic doxycycline 100 mg twice daily for the next 10 days to prevent secondary bone infection from the fracture as it did injure the lining of the nose called the mucosa. Percocet tabs 5/325 mg 1 or 2 every 4-6 hours as needed for pain relief. Zofran 4 mg under the tongue every 4-6 hours necessary for nausea relief. Also suffered blunt force trauma to both anterior knees over the kneecaps with bruises but clinically no evidence of fractures. Also x-rays of your pelvis reveal mild degenerative arthritis in both hips but particularly on the right side. Again no fractures were identified. Up with personal care physician if any further problems arise. Sepsis Event Note (ED) - Evaluation Sepsis Screening Result: No Definite Risk - Focused Exam Vital Signs: Vital Signs Temp Pulse Resp BP Pulse Ox 10/05/19 19:16 36.3 C 98 22 H 143/65 H 94 L - My Orders Last 24 Hours: My Active Orders 10/05/19 19:27 Maxillofacial w/o CM [Max Facial Sinus wo Cont] [CT] Stat 10/05/19 19:28 Cervical Spine wo Cont [CT] Stat 10/05/19 19:29 Head wo Cont [CT] Stat 10/05/19 19:32 Pelvis 1V or 2V [CR] Stat - Assessment/Plan Last 24 Hours: My Active Orders 10/05/19 19:27 Maxillofacial w/o CM [Max Facial Sinus wo Cont] [CT] Stat 10/05/19 19:28 Cervical Spine wo Cont [CT] Stat 10/05/19 19:29 Head wo Cont [CT] Stat 10/05/19 19:32 Pelvis 1V or 2V [CR] Stat
[2019-10-05 19:33] VITALS: BP 143/65; PULSE 98
--- NOTE | 2019-10-06 13:14 | CT ---
CT cervical spine Technique: Multiple axial sections were obtained from above C1 inferiorly to the top of T2. Reconstructed sagittal and coronal images were obtained. Comparison: Previous CT cervical spine study of 07/13/16. Findings: Scattered disc space narrowing throughout the cervical spine is noted. Minimal degenerative change between the dens and anterior arch of C1. No bony central or bony neural foraminal stenosis is seen. Slight kyphosis is seen believed to be positional. Mild scattered endplate osteophytes are seen. No acute fracture or subluxation is appreciated. Rim calcified nodule is noted within the right lobe of the thyroid gland. Impression: 1. Degenerative change as described above. 2. No acute abnormality is appreciated on CT study of the cervical spine. 3. No significant change from previous study is seen. Diagnostic code #2 This report was dictated in MDT I agree with preliminary report from [facility], finalized on 10/05/19, 9:13 PM Central Daylight Time
--- NOTE | 2019-10-06 13:15 | CT ---
Head CT Technique: Multiple axial sections through the brain were obtained. Intravenous contrast was not utilized. Comparison: Prior head CT study of 07/13/16. Findings: Ventricles along with basal cisterns and sulci over the convexities are within normal limits. No abnormal parenchymal densities are seen. No evidence of intracranial hemorrhage. No midline shift or mass-effect is appreciated. Bone window settings were reviewed. Visualized mastoid sinuses and paranasal sinuses show nothing acute. Impression: 1. Nothing acute is appreciated on noncontrast head CT study. Diagnostic code #1 This report was dictated in MDT I agree with preliminary report from [facility], finalized on 10/05/19, 9:06 PM Central Daylight Time
--- NOTE | 2019-10-06 13:15 | CR ---
Pelvis: AP view of the pelvis was obtained. Comparison: No prior pelvis x-ray is available. Joint spaces within both hips are preserved. Sacroiliac joints appear within normal limits. No acute fracture or other bony abnormality is appreciated. Impression: 1. Nothing acute is appreciated on AP pelvis study. Diagnostic code #1 This report was dictated in MDT I agree with preliminary report from [facility], finalized on 10/05/19, 9:25 PM Central Daylight Time
--- NOTE | 2019-10-06 13:15 | CT ---
CT facial bones Technique: Multiple axial sections were obtained through the facial bones. Reconstructed coronal and sagittal images were obtained. Comparison: No prior facial bone study is available. Findings: Nasal bone fracture is seen. No additional facial bone fracture is identified. Right and left globes are symmetric. Paranasal sinuses show nothing acute. Impression: 1. Nasal bone fracture. Age of this is indeterminate. Please correlate if patient has acute symptoms to the nasal bone. 2. No other acute finding is appreciated on CT study of the facial bones. Diagnostic code #3 This report was dictated in MDT I agree with preliminary report from [facility], finalized on 10/05/19, 9:09 PM Central Daylight Time
== END 2019-10-05 20:30 | disposition home or self-care (01) ==
LOC: JD.ED 19:05
DX: S02.2XXA Fracture of nasal bones, initial encounter for closed fracture (principal); S80.02XA Contusion of left knee, initial encounter; S80.01XA Contusion of right knee, initial encounter; I10 Essential (primary) hypertension; J45.909 Unspecified asthma, uncomplicated; F41.0 Panic disorder [episodic paroxysmal anxiety]; F32.9 Major depressive disorder, single episode, unspecified; F43.10 Post-traumatic stress disorder, unspecified; Z88.1 Allergy status to other antibiotic agents; Z88.0 Allergy status to penicillin; Z88.8 Allergy status to other drugs, medicaments and biological substances; Z79.899 Other long term (current) drug therapy; W01.0XXA Fall on same level from slipping, tripping and stumbling without subsequent striking against object, initial encounter; Y92.009 Unspecified place in unspecified non-institutional (private) residence as the place of occurrence of the external cause
CPT/HCPCS: 70450; 70486; 72125; 72170; 99284; A9270; 99283

== ENCOUNTER 2020-01-19 19:11 | Emergency (ER) | payer MEDICAID ==
[2020-01-19 19:29] VITALS: BP 137/79; PULSE 86
[2020-01-19] MEDS ORDERED: ALPRAZolam 1 MG Tab PO ONE (19:35)
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
[2020-01-19] MEDS ORDERED: Ketorolac 60 MG/2 ML SDV IM ONE ×2 (20:14→20:15)
--- NOTE | 2020-01-20 10:14 | CR ---
PROCEDURE INFORMATION: Exam: XR Left Shoulder Exam date and time: 01/19/2020 7:39 PM Age: 54 years old Clinical indication: Injury or trauma; Fall; Swelling (edema); Injury date: 01/19/2020; Prior surgery; Surgery date: <1 month; Surgery type: Rotator cuff repair, 12/24/2019 lt shoulder; Patient HX: Pain, fell and landed on left shoulder onset 1 hour ago; Additional info: Previous reports scanned in for your review TECHNIQUE: Imaging protocol: XR Left shoulder. Views: 2 or more views. COMPARISON: MR Shoulder wo Cont Lt 10/15/2019 9:28 AM FINDINGS: Bones/joints: Very minimal spurring at the acromioclavicular joint. No fracture Soft tissues: Minimal soft tissue calcification adjacent to the humeral head. IMPRESSION: No acute fracture. Minimal soft tissue calcification adjacent to the humeral head. Correlate for calcific tendinitis. Thank you for allowing us to participate in the care of your patient. Dictated and Authenticated by: Jean-Pierre Adam MD 01/19/2020 9:08 PM Central Time ([place] & [place]) TREY
--- NOTE | 2020-01-20 10:15 | CR ---
PROCEDURE INFORMATION: Exam: XR Cervical Spine, 2 or 3 Views Exam date and time: 01/19/2020 7:46 PM Age: 54 years old Clinical indication: Patient HX: PT fell and now having generalized neck pain; Additional info: Previous reports scanned in for your review TECHNIQUE: Imaging protocol: XR of the cervical spine, 2 or 3 views. COMPARISON: CT Cervical Spine wo Cont 10/05/2019 7:30 PM FINDINGS: Bones/joints: Minimal intervertebral disc space narrowing at the C4-C5, C5-C6 and C6-C7 levels. Minimal vertebral body spurring. Cervical vertebral body heights and alignment are preserved. Soft tissues: Unremarkable. Lungs: Partially imaged catheter projects over the right lung apex. IMPRESSION: Minimal cervical spondylosis as above. Thank you for allowing us to participate in the care of your patient. Dictated and Authenticated by: Jean-Pierre Adam MD 01/19/2020 9:10 PM Central Time ([place] & [place]) TREY
== END 2020-01-19 20:39 | disposition home or self-care (01) ==
LOC: JD.ED 19:11
DX: S40.012A Contusion of left shoulder, initial encounter (principal); M54.2 Cervicalgia; I10 Essential (primary) hypertension; E03.9 Hypothyroidism, unspecified; E66.9 Obesity, unspecified; Z68.31 Body mass index [BMI] 31.0-31.9, adult; Z88.1 Allergy status to other antibiotic agents; Z88.8 Allergy status to other drugs, medicaments and biological substances; Z88.0 Allergy status to penicillin; Y04.0XXA Assault by unarmed brawl or fight, initial encounter
CPT/HCPCS: 72040; 73030; 96372; 99284; J1885